=== PATIENT | female | born 1995 | race Caucasian/White ===

== ENCOUNTER 2021-10-20 07:51 | Inpatient (IN) | payer OTHER ==
[~2021-10-20] VITALS: Ht 167.6 cm; Wt 72.6 kg
[~2021-10-20 07:51] MED LIST: CLINDAMYCIN HC300 MG PO; HYDROCODON-ACE1 EAC2 PO
[2021-10-20 08:59] LABS: HEMOGLOBIN 14.1 gm/dl (12.3-15.3); RED BLOOD COUNT 4.92 M/UL (4.00-5.10); WHITE BLOOD COUNT 16.2 K/UL (4.5-11.0)
[2021-10-20 09:20] LABS: BUN/CREATININE RATIO 9 (0-10)
[2021-10-21 06:57] LABS: HEMOGLOBIN 11.1 gm/dl (12.3-15.3); RED BLOOD COUNT 3.88 M/UL (4.00-5.10); WHITE BLOOD COUNT 11.8 K/UL (4.5-11.0)
[2021-10-21 07:21] LABS: BUN/CREATININE RATIO 13 (0-10)
[2021-10-22 06:59] LABS: HEMOGLOBIN 10.7 gm/dl (12.3-15.3); RED BLOOD COUNT 3.83 M/UL (4.00-5.10); WHITE BLOOD COUNT 11.6 K/UL (4.5-11.0)
[2021-10-22 07:22] LABS: BUN/CREATININE RATIO 15 (0-10)
[2021-10-23 06:44] LABS: HEMOGLOBIN 10.6 gm/dl (12.3-15.3); RED BLOOD COUNT 3.74 M/UL (4.00-5.10); WHITE BLOOD COUNT 10.3 K/UL (4.5-11.0)
[2021-10-23 07:14] LABS: BUN/CREATININE RATIO 11 (0-10)
[2021-10-24 06:44] LABS: HEMOGLOBIN 10.6 gm/dl (12.3-15.3); RED BLOOD COUNT 3.71 M/UL (4.00-5.10); WHITE BLOOD COUNT 8.2 K/UL (4.5-11.0)
[2021-10-24 06:54] LABS: BUN/CREATININE RATIO 12 (0-10)
[2021-10-25 07:06] LABS: BUN/CREATININE RATIO 7 (0-10)
[2021-10-25] MEDS ORDERED: AMOX TR-K CLV1 EAC4 PO (08:40)
[2021-10-25] MEDS ORDERED: HYDROCODON-ACE1 EAC2 PO ×2 (08:40→08:41)
[2021-10-25] MEDS ORDERED: IBUPROFEN600 MG PO (09:11)
== END 2021-10-25 13:49 | disposition home or self-care (01) | DRG 603 ==
LOC: ER1 07:51 → CDU 13:03 → MED SURG 4 13:03
PROVIDERS: Emergency Medicine; Internal Medicine; Physician Assistant; ADMIT Internal Medicine
DX: L03.211 Cellulitis of face (principal); K04.7 Periapical abscess without sinus; K02.9 Dental caries, unspecified; Z20.822 Contact with and (suspected) exposure to COVID-19; K11.1 Hypertrophy of salivary gland; G47.00 Insomnia, unspecified; E87.6 Hypokalemia; F17.290 Nicotine dependence, other tobacco product, uncomplicated; Z82.49 Family history of ischemic heart disease and other diseases of the circulatory system; Z83.3 Family history of diabetes mellitus
CPT/HCPCS: 36415; 70487; 80048; 80053; 83735; 84703; 85025; 85027; 85652; 86140; 86735; 87040; 96374; 96375; 99284; J0295; J1885; J2270; J2405; J7030; Q9967